=== PATIENT | male | born 1935 | race Caucasian/White ===

== ENCOUNTER 2016-09-15 18:06 | Emergency (ER) | payer OTHER ==
[2016-09-15 18:54] VITALS: TEMP 97; BMI 25.0
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
[2016-09-15] MEDS ORDERED: TETANUS AND DIPHTHERIA TOXOID 0.5 ML DISP.SYRIN IM ONE (22:09)
[2016-09-15] MEDS ORDERED: CEPHALEXIN MONOHYDRATE 500 MG CAPSULE (UD) PO ONE (22:09)
[2016-09-15] MEDS ORDERED: CEPHALEXIN MONOHYDRATE 250 MG CAPSULE (FP) ONE (22:40)
[2016-09-15 22:56] VITALS: BP 149/70; PULSE 65
--- NOTE | 2016-09-15 22:57 | PDOC ---
*Physical Exam - Vital Signs Last Vital Signs Temp Pulse Resp BP Pulse Ox 97.0 F L 65 17 149/70 99 09/15/16 18:06 09/15/16 22:55 09/15/16 22:55 09/15/16 22:55 09/15/16 22:55 ED Treatment Course - Medications Given in the ED: ED Medications Discontinued Medications Generic Name Dose Route Start Last Admin Trade Name Freq PRN Reason Stop Dose Admin Cephalexin HCl 500 mg 09/15/16 22:09 09/15/16 22:51 Keflex - PO 09/15/16 22:10 500 mg ONCE ONE Administration Tetanus/Diphtheria Toxoids Adsorbed 0.5 ml 09/15/16 22:09 09/15/16 22:49 Decavac - IM 09/15/16 22:10 0.5 ml .ONCE ONE Administration Medical Decision Making - Medical Decision Making 09/15/16 22:57 agree with care from PASCUAL Reese *DC/Admit/Observation/Transfer Diagnosis at time of Disposition: Head injury Qualifiers: Encounter type: initial encounter Qualified Code(s): S09.90XA - Unspecified injury of head, initial encounter - Discharge Dispostion Disposition: HOME Condition at time of disposition: Stable - Prescriptions Prescriptions: Cephalexin Monohydrate [Keflex -] 500 mg PO BID #10 capsule - Referrals Referrals: Truman Hussein MD [Primary Care Provider] - - Patient Instructions Printed Discharge Instructions: DI for Closed Head Injury Additional Instructions: FOLLOW UP WITH YOUR PRIMARY CARE PROVIDER. TAKE MEDICATIONS PRESCRIBED. RETURN IF SYMPTOM WORSEN, OR ANY CONCERNS FOR FURTHER EVALUATION. Print Language: ISRAELI - Post Discharge Activity
--- NOTE | 2016-09-20 22:42 | EKG ---
Test Reason : Blood Pressure : / mmHG Vent. Rate : 070 BPM Atrial Rate : 288 BPM P-R Int : 000 ms QRS Dur : 110 ms QT Int : 376 ms P-R-T Axes : 000 -65 021 degrees QTc Int : 406 ms POOR DATA QUALITY, INTERPRETATION MAY BE ADVERSELY AFFECTED ATRIAL FIBRILLATION LEFT AXIS DEVIATION SEPTAL INFARCT , AGE UNDETERMINED INFERIOR INFARCT , AGE UNDETERMINED ABNORMAL ECG NO PREVIOUS ECGS AVAILABLE Confirmed by RAFAEL COFFEY, CHRISTY ([id number]) on 09/20/2016 10:42:30 PM Referred By: Confirmed By:CHRISTY HALL MD
== END 2016-09-15 22:58 | disposition home or self-care (01) ==
LOC: JER 18:06
PROC: 3E0234Z Introduction of Serum, Toxoid and Vaccine into Muscle, Percutaneous Approach (ICD-10-PCS; principal; 2016-09-15)
DX: S09.90XA Unspecified injury of head, initial encounter (principal); W05.0XXA Fall from non-moving wheelchair, initial encounter; Y93.89 Activity, other specified; Y92.481 Parking lot as the place of occurrence of the external cause; I10 Essential (primary) hypertension; E78.00 Pure hypercholesterolemia, unspecified
CPT/HCPCS: 70450-TC; 72125-TC; 93005; 93010; 99284-25